=== PATIENT | male | born 1995 | race Caucasian/White ===

== ENCOUNTER 2016-10-30 20:59 | Emergency (ER) | payer BC ==
[~2016-10-30] VITALS: Ht 182.9 cm; Wt 91.3 kg
[2016-10-30 21:25] VITALS: TEMP 36.7; Ht 182.9 cm; Wt 91.3 kg
[2016-10-30] MEDS ORDERED: XYLOCAINE 1%/SOD BICARB 20 ML VIAL INFIL ONE (22:45)
[2016-10-30] MEDS ORDERED: CLON0.1T12 PO (23:03)
[2016-10-30] MEDS ORDERED: LISD70CA PO (23:03)
--- NOTE | 2016-10-30 23:05 | EMERGENCY ROOM VISIT NOTE ---
ED Visit Note First contact with patient: 22:23 CHIEF COMPLAINT: Finger laceration HISTORY OF PRESENT ILLNESS: This 21-year-old male patient presents to the emergency department ambulatory after cutting the right thumb just prior to arrival. The patient reports that he was working on a graphic design project and was using an [employer] knife when he slipped and cut his thumb. The bleeding has stopped. Denies weakness or numbness of the finger. The patient has full range of motion of the fingers. The patient rates the pain as sharp and 6/10. The patient denies any other injuries. The patient's tetanus shot is up to date. REVIEW OF SYSTEMS: A 6 system review of systems was completed with positives and pertinent negatives listed in the HPI. ALLERGIES: No known drug allergies MEDICATIONS: Fire ants, Catapres PMH: No significant past medical history. SOCIAL HISTORY: The patient lives locally with family. PHYSICAL EXAM: Vital Signs: Reviewed Nurse's notes, vital signs stable. GENERAL : This is a 21-year-old male, in no acute distress, well developed, well nourished. SKIN: There is a 2 cm long laceration on the palmar aspect of the right thumb. The edges gape apart with traction. There is no foreign material in the wound and it looks clean. There is no active bleeding. No deep structures such as tendons, bones, or significant blood vessels are seen in the base of the wound. Extension and flexion of the finger is full and strong. Full range of motion of the wrist and other fingers. Capillary refill less than 2 seconds. Normal sensation to light and sharp touch. EMERGENCY DEPARTMENT COURSE: I examined the patient. Verbal consent was obtained to perform the procedure. Using sterile technique the wound was cleansed with Betadine. 4 ml of 1% buffered lidocaine was used to perform a digital block to anesthetize the patient. The area was sterilely draped. Once the patient was anesthetized, the wound was copiously irrigated under pressure with sterile saline. The wound was explored and there were no deep structures injured. The laceration was repaired using 5 simple interrupted 5-0 nylon sutures. The patient tolerated the procedure well. Hemostasis was achieved. The area was cleaned with sterile saline and dressed with bacitracin ointment and bandage. He was placed in a metal finger splint. The patient was given follow up information for Dr. Gonzales in case there is any persistent numbness or weakness. The patient was discharged home in good condition. DIAGNOSIS: Finger laceration Current/Historical Medications Scheduled Clonidine Hcl (Catapres), 0.1 MG PO DAILY Lisdexamfetamine Dimesylate (Vyvanse), 70 MG PO DAILY Allergies Coded Allergies: No Known Allergies (Unverified , 10/30/16) Vital Signs Date Time Temp Pulse Resp B/P Pulse Ox O2 Delivery O2 Flow Rate FiO2 10/30/16 21:25 36.7 95 20 142/89 97 Room Air Departure Information Dispostion Home / Self-Care Condition GOOD Referrals No Doctor, Assigned (PCP) Dashawn Gonzales MD Patient Instructions My [facility] Additional Instructions You have received 5 sutures on your thumb. These sutures are NOT dissolvable and WILL need to be removed by a health care provider in [] days. You can return to the Emergency Department or contact your Primary Care Provider to have the sutures removed. Wear the metal splint as needed. Follow-up with orthopedics if you have any persistent weakness of the finger or numbness. Proper wound care is essential for adequate wound healing and infection prevention. You can shower and clean the wound with soap and water. Do not scour over the wound, pat dry with a towel. Do not submerse the wound (i.e. bathe or dish wash) until the sutures have been removed. You can use an antibiotic ointment with a dressing over the wound for the next 3-4 days. After this time you may leave the wound dry and open to the air. If crust develops over the wound you can use a Q-tip to apply a 1:1 peroxide:water solution to clean the wound. Look for signs of infection of the wound including: increased pain, swelling, foul discharge, streaking, or increased temperature. If any of these are noticed you should return to the Emergency Department for further assessment and treatment. As with any laceration you may have received nerve damage to the surrounding tissues. This damage may or may not be permanent. You should keep the area covered with sunscreen for the first 6 months to 1 year when at risk for exposure to help minimize scarring. You can also use scar reducing creams or Vitamin E oil to help minimize scarring. For pain control, you can use the following [id number] medicines (if >12 yo): - Regular strength (325mg/tab) Tylenol (acetaminophen) 2 tabs every 4-6 hours as needed. Do not exceed 12 tablets in a 24 hour period. Avoid taking more than 4 grams (4000 mg) of Tylenol per day. This includes any other sources of acetaminophen you may take on a regular basis. - Regular strength (200 mg/tab) Advil (ibuprofen) 1-2 tabs every 4-6 hours as needed. Do not exceed a dose of 3200 mg per day. Return to the emergency department if your symptoms worsen despite treatment course outlined above.
[2016-10-30 23:25] VITALS: BP 137/86; PULSE 89; O2SAT 98
== END 2016-10-30 23:25 | disposition home or self-care (01) ==
LOC: C.EDB 21:02 → C.EDD 23:25
DX: S61.011A Laceration without foreign body of right thumb without damage to nail, initial encounter (principal); W26.0XXA Contact with knife, initial encounter